=== PATIENT | male | born 1975 | race Two or more races ===

== ENCOUNTER 2016-09-03 08:09 | Emergency (ER) | payer SELFPAY ==
[2016-09-03 08:17] VITALS: TEMP 97.3
[2016-09-03] MEDS ORDERED: NS 1,000 ML IV ONE ×2 (08:38)
[2016-09-03] MEDS ORDERED: HYDROmorphONE/DILAUDID 1 MG/ML SYR IVP ONE ×2 (08:38→10:19)
--- NOTE | 2016-09-03 08:47 | CPEKG ---
Heart Rate: 69 RR Interval: 870 P-R Interval: 148 QRSD Interval: 92 QT Interval: 396 QTC Interval: 425 P Alma: 67 QRS Alma: 79 T Wave Alma: 67 EKG Severity - NORMAL ECG - EKG Impression: SINUS RHYTHM Electronically Signed By: Angela Velásquez 03-Sep-2016 22:34:36
[2016-09-03 08:57] LABS: % IMMATURE GRANULYOCYTES 0.6 % (0.0-1.1); ABSOLUTE IMMATURE GRANULOCYTES 0.08 10^3/uL (0.00-0.10); ADD DIFF? NO; ADD MORPH? NO; ADD SCAN? NO; ATYPICAL LYMPHOCYTE FLAG 0 (0-99); FRAGMENT RBC FLAG 0 (0-99); HEMATOCRIT 44.7 % (40.0-51.0); HEMOGLOBIN 16.4 g/dL (13.7-17.5); LEFT SHIFT FLG 0 (0-99); LIPEMIA HEMOLYSIS FLAG 90 (0-99); MEAN CELL HEMOGLOBIN 30.5 pg (27.9-34.1); MEAN CELL HEMOGLOBIN CONCENTR. 36.7 g/dL (32.4-36.7); MEAN CELL VOLUME 83.2 fL (81.5-99.8); MEAN PLATELET VOLUME 9.1 fL (8.7-11.7); PLATELET CLUMPS FLAG 20 (0-99); PLATELET COUNT 235 10^3/uL (150-400); RED BLOOD CELL COUNT 5.37 10^6/uL (4.40-6.38); RED CELL DISTRIBUTION WIDTH 12.2 % (11.5-15.2)
[2016-09-03] MEDS ORDERED: IOPAMIDOL (ISOVUE-300) 100 ML BTL IV ONE (09:11)
--- NOTE | 2016-09-03 09:16 | EDPHY ---
H & P Stated Complaint: mid qaud abd pain since 0300.n/v Source: Patient, Family Exam Limitations: No limitations - Personal History Current Tetanus/Diphtheria Vaccine: Unsure Current Tetanus Diphtheria and Acellular Pertussis (TDAP): Unsure - Medical/Surgical History Hx Asthma: No Hx Chronic Respiratory Disease: No Hx Diabetes: No Hx Cardiac Disease: No Hx Renal Disease: No Hx Cirrhosis: No Hx Alcoholism: No Hx HIV/AIDS: No Hx Splenectomy or Spleen Trauma: No - Social History Smoking Status: Never smoked HPI/ROS: CHIEF COMPLAINT: Epigastric abdominal pain HISTORY OF PRESENT ILLNESS: epigastric abdominal pain that started sometime overnight and into this morning. He felt that it was possibly related to anemia that he ate last night. It was sharp, stabbing pain in the epigastrium. Worse with palpation or movement. Nausea but no vomiting at this time. No chest pain or shortness of breath. No fever or chills. No urinary complaints. Similar pain several weeks ago that he took something from [place] called [employer] for help. The medication appears to be related to scopolamine. He has some radiating pain into the general abdomen. He has no vomiting but some nausea. Worse with palpation and movement. Improved at rest. Improving with the medication he received IV prior to my examination. No other associated complaints or modifying factors. No cardiac history. No hypertension, diabetes or dyslipidemia. PREVIOUS ABDOMINAL SURGERIES/DIAGNOSES: None NPO: last night 8:00 p.m. REVIEW OF SYSTEMS: Ten systems reviewed and are negative unless otherwise noted in the HPI EXAMINATION: General Appearance: Alert, no distress Head: normocephalic, atraumatic Eyes: Pupils equal and round, no conjunctival pallor or injection ENT, Mouth: Mucous membranes moist Neck: Normal inspection, supple, non-tender Respiratory: Lungs are clear to auscultation Cardiovascular: Regular rate and rhythm Gastrointestinal: Abdomen is soft But Moderately tender in the epigastrium and periumbilical. No rebound. No tympany or rigidity. Back: non-tender, no bony abnormalities Neurological: A&O, nonfocal, strength is 5/5 in all limbs. Skin: Warm and dry, no rash Extremities: Nontender, no pedal edema Psychiatric: Mood and affect normal DIFFERENTIAL DIAGNOSES: Including but not limited to Pancreatitis, cholecystitis, duodenitis, enteritis, gastritis, gastroesophageal reflux, peptic ulcer disease, cardiac etiology MDM: 9:00 a.m. abdominal pain the epigastrium that is moderately tender to palpation. No peritonitis but very tender. I will obtain as CT scan of the abdomen and pelvis to delineate. We also are obtaining a cardiac workup given the epigastric pain. He does not have a history or exam that is consistent with cardiac etiology at this time. He is resting comfortably with stable vital signs and in no acute distress. 10:15 a.m. notified by Radiology that the x-ray report of the CT abdomen pelvis is negative. No acute findings noted. Laboratory studies are within normal limits with a mild elevated white count. Urine is pending at this time. I have re-evaluated the patient. He has improvement in his pain but not resolved. He is feeling better than when he got here. Still has no chest pain or vomiting. Discussed treatment with a GI cocktail in further pain medication. At this point he actually did remember that he felt that he had been diagnosed with peptic ulcer in the past, but he is not taking anything for it. He remains stable in no acute distress per will attempt these medications and re-evaluate 12:00 p.m. patient is feeling much better after repeat medication GI cocktail. Likely peptic ulcer involvement. CT scan normal. Labs within normal limits with mild leukocytosis. No fever chills. No nausea or vomiting. Tolerating p. o. intake in the ER. Discharged home with symptomatic care and referral to GI for further workup. Patient and significant other at bedside are comfortable with this plan. ED Precautions: Worsening pain. Fever. Bloody stools. Bloody emesis. Constipation or diarrhea. SUPERVISION:Patient was evaluated in conjunction with the supervising physician. Please see their note for details. (Daquan Whittington) Constitutional: Initial Vital Signs Temperature (C) 36.3 C 09/03/16 08:14 Respiratory Rate 26 H 09/03/16 08:14 Blood Pressure 128/76 H 09/03/16 08:14 O2 Sat (%) 97 09/03/16 08:14 O2 Delivery Mode Room Air Allergies/Adverse Reactions: No Known Allergies Allergy (Unverified 09/03/16 08:18) Home Medications: Medication Instructions Recorded Citalopram [CeleXA] 20 mg PO 09/03/16 Embrel 09/03/16 Omeprazole Magnesium [Prilosec Otc] 20 mg PO DAILY #30 tablet.dr 09/03/16 Ondansetron Odt [Zofran Odt 4 mg 4 mg PO Q4 PRN #12 tab 09/03/16 (*)] TRAMADOL HCL [RYZOLT] 100 mg PO 09/03/16 oxyCODONE HCL/ACETAMINOPHEN 1 each PO Q4-6PRN PRN #20 tablet 09/03/16 [Percocet 5-325 mg Tablet] Medical Decision Making Other Provider: The patient was evaluated and managed by the Physician Chemical Sprayer/ Nurse Practitioner. I discussed the patient's presentation and course with the midlevel provider with them and agree with the evaluation. My co-signature indicates that I have reviewed this chart and I agree with the findings and plan of care as documented. I am the secondary supervising physician. (Angela Velásquez) - Data Points Laboratory Results: Laboratory Results 09/03/16 08:35 09/03/16 08:35 Medications Given: Discontinued Medications Hydromorphone HCl (Dilaudid) 1 mg IVP EDNOW ONE Stop: 09/03/16 08:39 Last Admin: 09/03/16 08:54 Dose: 1 mg Hydromorphone HCl (Dilaudid) 1 mg IVP EDNOW ONE Stop: 09/03/16 10:20 Last Admin: 09/03/16 10:54 Dose: 1 mg Sodium Chloride (Ns) 1,000 mls @ 0 mls/hr IV ONCE ONE PRN Reason: Wide Open Stop: 09/03/16 08:39 Last Admin: 09/03/16 08:54 Dose: 1,000 mls Sodium Chloride (Ns) 1,000 mls @ 0 mls/hr IV ONCE ONE PRN Reason: Wide Open Stop: 09/03/16 08:39 Last Admin: 09/03/16 08:54 Dose: Not Given Miscellaneous Medication (Gi Cocktail) 55 ml PO EDNOW ONE Stop: 09/03/16 10:20 Last Admin: 09/03/16 10:54 Dose: 55 ml Departure - Departure Disposition: Home, Routine, Self-Care Clinical Impression: Epigastric abdominal pain Condition: Good Instructions: Peptic Ulcer (ED), Gastritis (ED), Diet for Stomach Ulcers and Gastritis (ED) Additional Instructions: Follow-up with GI specialist for further care. Return to the ER for worsening pain, hematemesis, or bloody stools. Referrals: NONE *PRIMARY CARE P,. [Primary Care Provider] - As per Instructions Sacha Snyder MD [Medical Doctor] - As per Instructions Prescriptions: oxyCODONE HCL/ACETAMINOPHEN [Percocet 5-325 mg Tablet] 1 each PO Q4-6PRN PRN # 20 tablet PRN Reason: Pain, Moderate Omeprazole Magnesium [Prilosec Otc] 20 mg PO DAILY #30 tablet. Ondansetron Odt [Zofran Odt 4 mg (*)] 4 mg PO Q4 PRN #12 tab PRN Reason: Nausea/Vomiting, Use 1st
[2016-09-03 09:22] LABS: INR 0.95 (0.83-1.16); PROTIME(PATIENT) 12.6 SEC (12.0-15.0)
[2016-09-03 09:23] LABS: ALANINE AMINOTRANSFERASE 64 IU/L (21-72); ALBUMIN 4.4 g/dL (3.5-5.0); ALKALINE PHOSPHATASE 66 IU/L (38-126); ANION GAP 11 mEq/L (8-16); APTT 28.4 SEC (23.0-38.0); ASPARTATE AMINOTRANSFERASE 35 IU/L (17-59); BILIRUBIN,TOTAL 1.4 mg/dL (0.1-1.4); BILIRUBIN-CONJUGATED 0.3 mg/dL (0.0-0.5); BILIRUBIN-UNCONJUGATED 1.1 mg/dL (0.0-1.1); CALCIUM 9.6 mg/dL (8.5-10.4); CARBON DIOXIDE 23 mEq/l (22-31); CHLORIDE 106 mEq/L (97-110); CREATININE 0.8 mg/dL (0.7-1.3); GLOMERULAR FILTRATION RATE > 60; GLUCOSE 120 mg/dL (70-100); SODIUM 140 mEq/L (134-144); TOTAL PROTEIN 7.6 g/dL (6.3-8.2)
[2016-09-03 09:33] LABS: TROPONIN I < 0.012 ng/mL (0-0.034)
--- NOTE | 2016-09-03 09:36 | DX ---
Portable Chest, Single View 9:16 a.m. Hours Indication: Epigastric pain Comparison: None Findings: The lungs are well aerated and clear. Heart size is normal. No pneumothorax, airspace conso lidation, edema or effusion. No pneumoperitoneum. Impression: Normal portable chest.
[2016-09-03] MEDS ORDERED: MAALOX/LIDO/HYOSC GI COCKTAIL 55 ML BOTTLE PO ONE (10:19)
--- NOTE | 2016-09-03 10:22 | CT ---
CT Scan of the Abdomen and Pelvis (With Contrast) Indication: Epigastric pain. Technique: No oral or rectal contrast. 99 mL of Isovue-300 were given intravenously by machine power injection. Multidetector helical CT imaging was performed from the diaphragm to the symphysis pubis . Dose reduction techniques were utilized. Comparison: None. Findings: No pneumoperitoneum, free fluid, mesenteric edema, lymphadenopathy or mass. The pancreas is normal. No peripancreatic inflammatory process, pancreatic duct dilatation, or pancre atic calcifications. The liver, spleen, gallbladder, adrenal glands and kidneys are normal. No biliar y dilation or portal vein thrombosis. The bowel pattern is normal with exception of mild constipation. The appendix is normal. Lung bases are clear. The abdominal aorta is normal. No bone lesion or pars defect. Moderate degenera tive disk disease and disk bulge are present at L5-S1. Impression: 1. Normal pancreas. No free fluid or acute inflammatory process in the abdomen. 2. Mild constipation. 3. Degenerative disk disease at L5-S1. Comment: Results were called to Daquan Whittington PA-C, at 10:15 a.m. September 03, 2016.
[2016-09-03 10:33] LABS: COLOR YELLOW; LEUKOCYTE ESTERASE,URINE NEGATIVE (NEGATIVE); NITRITE,URINE NEGATIVE (NEGATIVE)
[2016-09-03 12:01] VITALS: BP 128/77; PULSE 55; RESP 14; O2SAT 94
== END 2016-09-03 12:59 | disposition home or self-care (01) ==
DX: R10.13 Epigastric pain (principal)
CPT/HCPCS: 96374; J1170; Q9967